=== PATIENT | male | born 1995 | race Hispanic/Latino ===

== ENCOUNTER 2021-07-17 16:55 | Emergency (ER) | payer SELFPAY | END 2021-07-17 17:48 | disposition home or self-care (01) | LOC: MADERS 16:55 | DX: H66.92 Otitis media, unspecified, left ear (principal); H61.23 Impacted cerumen, bilateral | CPT/HCPCS: 99282 ==

== ENCOUNTER 2024-05-04 14:50 | Emergency (ER) | payer SELFPAY | END 2024-05-04 17:08 | disposition home or self-care (01) | LOC: MADERS 14:50 | DX: S86.911A Strain of unspecified muscle(s) and tendon(s) at lower leg level, right leg, initial encounter (principal); W18.42XA Slipping, tripping and stumbling without falling due to stepping into hole or opening, initial encounter | CPT/HCPCS: 99283 ==